=== PATIENT | male | born 1955 | race Caucasian/White ===

== ENCOUNTER → 2016-11-02 | Outpatient (CLI) | payer BC ==
[~2016-11-02] MED LIST: DVN80 PO; RIVA1TAB4 PO; TPRSR50 PO
== END | disposition home or self-care (01) ==
LOC: C.FOODA 13:26
PROVIDERS: ATTEND Family Medicine
DX: Z68.37 Body mass index [BMI] 37.0-37.9, adult (principal); E78.00 Pure hypercholesterolemia, unspecified; I21.3 ST elevation (STEMI) myocardial infarction of unspecified site

== ENCOUNTER → 2016-11-23 | Day surgery (SDC) | payer BC ==
[~2016-11-23] VITALS: Ht 177.8 cm; Wt 122.1 kg
[~2016-11-23] MED LIST changes: +ACETAMINOPHEN 325 MG TAB PO PRN; +ASPIRIN 81 MG CHEW ONE; +ATROPINE SULFATE 0.1 MG/ML 5ML SYR IV PRN; +FENTANYL CITRATE INJ 50 MCG/1 ML 2 ML VIAL ONE; +HEPARIN SOD (PORCINE) 1000 UNIT/ML 10 ML VIAL ONE; +LIDOCAINE HCL 1% 20 ML VIAL ONE; +MIDAZOLAM HCL 1 MG/ML 2ML VIAL ONE; +NITROGLYCERIN/D5W 100MCG/ML 20ML SYR ONE; +NiCARDipine HCL INJ 2.5 MG/ML 10 ML AMP ONE; +ONDANSETRON INJ 2 MG/ML 2 ML VIAL IV PRN; +SODIUM CHLORIDE 0.9% 1000ML 1,000 ML IV SCH; +SODIUM CHLORIDE 0.9% 1000ML 250 ML IV PRN
[2016-11-23 07:11] VITALS: Ht 177.8 cm; Wt 122.1 kg
[2016-11-23 07:12] VITALS: BP 172/93; PULSE 82; TEMP 36.2; O2SAT 97
--- NOTE | 2016-11-23 07:50 | Procedure Note ---
Pre-Mod Sedation Assessment General Date of Moderate Sedation: Nov 23, 2016. Vital Signs: Vital Signs Past 12 Hours Date Time Temp Pulse Resp B/P Pulse Ox O2 Delivery O2 Flow Rate FiO2 11/23/16 07:12 36.2 82 16 172/93 97 Room Air Review Cardiovascular: regular rate, rhythm, no edema, no gallop, no JVD, no murmur, normal peripheral pulses Abdomen: normal bowel sounds, non tender, soft Lungs: lungs clear Pre-Sedation Airway Assessment Oral Cavity: WNL Able to Visualize Vocal Cords: No Short Thick Neck: Yes Hx of Sleep Apnea: Yes Smoking Status: Never Smoker Mallampati Classification: Class IV ASA Classification: Class II Procedure Planning Contraindications-for Mod Sed: None Yes Notes The planned sedation has been discussed with the patient and consent obtained. I have identified the patient, determined the appropriateness of sedation and have assessed the patient immediately prior to the procedure. All medicine(s) and interventions are by my order.
--- NOTE | 2016-11-23 09:26 | History & Physical Bridge Note ---
H&P Re-Evaluation Bridge Note: I have examined the patient, reviewed the History & Physical and in the interval since the performance of the History & Physical I have noted the following changes of clinical significance: No changes noted. Patient seen and examined by me prior to catheterization. No current cardiac symptoms. Cardiovascular exam unremarkable. The procedure, risks, benefits, and alternatives of cardiac catheterization and possible coronary intervention were discussed with the patient by me. He consents to the procedure.
--- NOTE | 2016-11-23 09:33 | Discharge Instructions ---
Discharge Instructions Procedure Procedure Date: Nov 23, 2016. Reason for Visit: Cad * To Do. Discharge Discharge Date: Nov 23, 2016. Discharge Diagnosis: Status post cardiac catheterization Last Recorded Wt (Kilograms): 122.1 Anesthesia Post Anesthesia Instructions: If you have had General Anesthesia or IV Sedation: * Do not drive today. * Resume driving when surgeon permits. * Do not make important decisions or sign legal documents today. * Call surgeon for: 1. Temperature elevations greater than 101 degrees F. 2. Uncontrollable pain. 3. Excessive bleeding. 4. Persistent nausea and vomiting. 5. Medication intolerance (nausea, vomiting or rash). * For nausea and vomiting use only clear liquids such as: tea, soda, bouillon until nausea subsides, then gradually increase diet as tolerated. * If you have any concerns or questions, call your surgeon's office. If physician is unavailable and it is an emergency, call 911 or go to the nearest emergency room. Instructions Activity Recommendations: lifting limitation (No lifting (over 10 pounds) or pulling or pushing with right arm and hand for 72 hours.), driving or machine use limit (No driving till SundayNovember 24), shower/bathe limit (You can shower on SundayNovember 24.) Return to School/Work: with the following limitations (No work for at least 72 hours.) Recommended Home Diet: low sodium, low cholesterol Allergies: Coded Allergies: No Known Allergies (Unverified , 09/13/16) Follow Up Additional Instructions: Call Dr. Plunkett's office at [phone] for any questions or problems regarding catheterization site and catheterization procedure. Follow-up with: Follow-up with Dr. Irwin and Dr. Snyder as scheduled. [facility] Recommendations: Call your doctor if: * Temperature above 101 degrees * Pain not relieved by pain medicine ordered * There is increased drainage or redness from any incision * You have any unanswered questions or concerns. Your Doctors Instructions noted above were prepared by provider Fox Plunkett. Patient Signature Section: Patient Instructions Signature Page Salvatore Meza Patient (or Guardian) Signature/Date: I have read and understand the instructions given to me by my caregivers. Caregiver/RN/Doctor Signature/Date: The above-named patient and/or guardian has received patient instructions on this date. + Original Patient Signature Page (only) stays with chart. Please make copy for patient.
--- NOTE | 2016-11-23 09:36 | Procedure Note ---
Post-Mod Sedation Assessment General Date of Moderate Sedation Nov 23, 2016. Vital Signs: Vital Signs Past 12 Hours Date Time Temp Pulse Resp B/P Pulse Ox O2 Delivery O2 Flow Rate FiO2 11/23/16 09:15 71 18 124/64 99 Room Air 11/23/16 09:00 71 18 122/60 99 Room Air 11/23/16 08:50 76 18 126/75 99 Room Air 11/23/16 08:45 74 18 130/75 99 Room Air 11/23/16 08:40 76 18 141/79 97 Room Air 11/23/16 08:35 77 18 149/82 98 Nasal Cannula 3 11/23/16 07:12 36.2 82 16 172/93 97 Room Air Review - Discharge Criteria Vital Signs Stable: Yes Alert/Oriented/Conversant: Yes Returned to Baseline Mental St: Yes Nausea Absent/Minimal: Yes Pain/Discomfort/Absent/Minimal: Yes Normal/Baseline Respirations: Yes Active Bleeding?: No Pt Received D/C Instructions: Yes Prescriptions Given: None Specific Proced. D/C Criteria Distal Pulses Present (Cardiac: Yes Groin site assessed-Card Cath: N/A Voided Prior To Discharge: Yes Discharged Patients Adult Escort/Transportation: Yes
--- NOTE | 2016-11-23 10:08 | Cardiac Catheterization ---
Procedure Note Procedure Date Nov 23, 2016. Pre-Procedure Diagnosis Positive Stress Test, Cardiomyopathy AUC Score 7 Post-Procedure Diagnosis Mild CAD Procedure(s) Performed Coronary Angiography, Left Heart Cath, LV Angiography Setter Helper Dr. Plunkett [employer] Architect(s) Wild [place] RTR Estimated Blood Loss < 15 ml Medication(s) Aspirin, Fentanyl, Heparin, Nicardipine (intra arterial), Versed, Lidocaine 1% Summary of Findings Clinical indications: Resting echocardiogram with inferior hypokinesis and apical akinesis. Septal hypokinesis. LV ejection fraction 50 percent. 6 minutes of treadmill exercise. Nonsustained ventricular tachycardia with exercise. Post exercise echo images revealed akinesis in the inferior wall. The apex remained akinetic. Increased contractility in the septum. The patient has been referred by Dr.Jason Snyder for coronary angiography and cardiac catheterization. Catheterization site: 6 [place] Slender glide sheath right radial artery. The artery was first accessed using a micro puncture technique. Hemostasis: Terumo TR band. Catheters: 6 [place] brachial 3.5, JL 3.5, and pigtail catheters. Findings: Fluoroscopy did not reveal any significant coronary calcifications. Coronary circulation was right dominant. Left main coronary artery was a large caliber vessel without obstructive disease. It gave rise to medium to large caliber left anterior descending, left circumflex, and ramus intermedius coronary arteries. The proximal LAD had a 20 percent stenosis. The LAD gave rise to very small caliber 1st and 2nd diagonal arteries. The mid and distal LAD had minor luminal irregularities with 0-10 percent luminal diameter narrowing. The ramus was a long bifurcating vessel without obstructive disease. The proximal mid left circumflex had 10-20 percent luminal diameter narrowing. The mid left circumflex gave rise to a long medium caliber marginal artery which had a 0-10 percent proximal stenosis. The right coronary artery was a large caliber vessel. Its mid segment had a 10 percent stenosis. It gave rise to normal small caliber posterior descending and posterolateral arteries. Left ventricular angiography performed in the 30 degree right anterior oblique projection revealed the posterobasal and diaphragmatic segments to be hypokinetic. The apex was hypokinetic. The anterolateral and anterobasal segments contracted normally. No mitral regurgitation noted. The calculated LV ejection fraction was 48 percent. Plan: There is no indication for any coronary revascularization procedure. The patient will continue cardiology follow-up with Dr. Snyder. Medical therapy for CAD risk factor modification. Hemodynamics Rest Ao: 123/77/99 mm Hg. Final Ao: 120/70/97 mm Hg LV: 127/20 mm Hg Recommendations Medical therapy and/or Counseling Specimens None Radiation Exposure (mGy) 1966 Contrast (mls) 75 ml Visipaque Fluids (cc crystalloids) 250 ml Drains none Anesthesia Intravenous Versed and fentanyl. Lidocaine 1 percent for local anesthesia. Procedural Complication(s) None Disposition Personal Care Aid Holding/Recovery ACC Data Cardiac Status Clinical evaluation leading to the procedure CAD Presntation: Positive Stress Test Anginal Classification: No symptoms Heart Failure: No Cardiogenic Shock w/in 24Hrs: No Cardiac Arrest w/in 24Hrs: No Imaging studies past 6 months: Yes Stress studies past 6 months: Yes Standard Exercise Stress Test: No Stress Echocardiogram: Yes - Positive, Risk/Extent of Ischemia (High) Stress Testing w/SPECT MPI: No Cardiac CTA: No Coronary Anatomy Dominant: Right Left Main (% Stenosis): Normal LAD (% Stenosis): Proximal (20), Mid (0-10), Distal (0-10) D1 (% Stenosis): Normal D2 (% Stenosis): Normal Circumflex (% Stenosis): Proximal (10-20), Mid (10-20) OM1 (% Stenosis): Proximal (0-10) RCA (% Stenosis): Mid (0-10) R PDA (% Stenosis): Normal R PL1 (% Stenosis): Normal Ramus (% Stenosis): Normal Left Ventricular Angiography EF (%): 48 Wall Motion: Inferior (Hypokinetic), Apical (Hypokinetic), Anterior (Normal) Mitral Regurgitation: None Diagnostic Physician's Name: Fox Plunkett M.D. Status: Elective Closure Device Percutaneous Entry Location: Radial Closure Device: Radial Band
[2016-11-23 12:00] VITALS: BP 134/60; PULSE 66; O2SAT 98
== END | disposition home or self-care (01) ==
LOC: C.CATH 06:54
PROVIDERS: ATTEND Internal Medicine Cardiovascular Disease
DX: R94.39 Abnormal result of other cardiovascular function study (principal); I42.8 Other cardiomyopathies; I48.92 Unspecified atrial flutter; G47.33 Obstructive sleep apnea (adult) (pediatric); E78.00 Pure hypercholesterolemia, unspecified; I10 Essential (primary) hypertension; E66.9 Obesity, unspecified